=== PATIENT | male | born 1970 | race Caucasian/White ===

== ENCOUNTER 2023-09-26 17:48 | Emergency (ER) | payer OTHER ==
[~2023-09-26] VITALS: Ht 185.4 cm; Wt 136.3 kg
[2023-09-26 18:25] VITALS: BP 153/95; PULSE 114; RESP 18; O2SAT 95
[2023-09-26] MEDS ORDERED: HYDR-4902 PO (20:36)
[2023-09-26] MEDS: HYDROcodone-ACET 5/325MG TAB PO ONE (20:47)
[2023-09-26] MEDS: KETOROLAC TROMETH 60MG/2ML VIAL IM ONE (20:48)
== END 2023-09-26 21:28 | disposition home or self-care (01) ==
LOC: ER 17:48
DX: S83.91XA Sprain of unspecified site of right knee, initial encounter (principal); I10 Essential (primary) hypertension; E11.9 Type 2 diabetes mellitus without complications; Z88.8 Allergy status to other drugs, medicaments and biological substances; X50.1XXA Overexertion from prolonged static or awkward postures, initial encounter; Y93.89 Activity, other specified; Y92.69 Other specified industrial and construction area as the place of occurrence of the external cause; Y99.8 Other external cause status
CPT/HCPCS: 29505; 73562; 96372; 99283; J1885